=== PATIENT | female | born 1985 | race African-American/Black ===

== ENCOUNTER → 2019-11-18 | Outpatient (CLI) | payer BC ==
[2019-11-18 10:40] LABS: ABSOLUTE EOSINOPHILS # (AUTO) 0.1 10^3/uL (0.0-0.6); ABSOLUTE LYMPHOCYTES (AUTO) 1.1 10^3/uL (0.5-4.7); ABSOLUTE MONOCYTES (AUTO) 0.3 10^3/uL (0.1-1.4); ABSOLUTE NEUT (AUTO) 0.6 10^3/uL (1.7-8.2); BASOPHILS % (AUTO) 1.3 % (0-2); EOSINOPHILS % (AUTO) 4.1 % (0-6); HEMATOCRIT 37.6 % (36.0-47.0); HEMOGLOBIN 12.4 g/dL (12.0-15.5); LYMPHOCYTES % (AUTO) 51.1 % (13-45); MEAN CORPUSCULAR HEMOGLOBIN 30.7 pg (27.0-33.4); MEAN CORPUSCULAR VOLUME 93 fl (80-97); MONOCYTES % (AUTO) 13.9 % (3-13); PLATELET COUNT 179 10^3/uL (150-450); RED BLOOD COUNT 4.04 10^6/uL (3.72-5.28); RED CELL DISTRIBUTION WIDTH 11.5 % (11.5-14.0); SEGMENTED NEUTROPHILS % (AUTO) 29.6 % (42-78); TOTAL CELLS COUNTED % (AUTO) 100 %; WHITE BLOOD COUNT 2.2 10^3/uL (4.0-10.5)
[2019-11-18 10:59] LABS: ALBUMIN 4.5 g/dL (3.5-5.0); ALKALINE PHOSPHATASE 60 U/L (38-126); ANION GAP 6 (5-19); ASPARTATE AMINO TRANSFERASE 18 U/L (14-36); BILIRUBIN,TOTAL 1.1 mg/dL (0.2-1.3); BLOOD UREA NITROGEN 8 mg/dL (7-20); CALCIUM 9.6 mg/dL (8.4-10.2); CARBON DIOXIDE 26 mmol/L (22-30); CHLORIDE 104 mmol/L (98-107); CHOLESTEROL 248.69 mg/dL (0-200); GLUCOSE 90 mg/dL (75-110); POTASSIUM 4.4 mmol/L (3.6-5.0); TOTAL PROTEIN 8.3 g/dL (6.3-8.2); TRIGLYCERIDES 35 mg/dL (<150)
[2019-11-18 11:09] LABS: DIRECT LDL 171 mg/dL (<100)
== END ==
LOC: OD 09:38
PROVIDERS: ATTEND Family Medicine Geriatric Medicine
DX: D64.9 Anemia, unspecified (principal); E55.9 Vitamin D deficiency, unspecified; E78.5 Hyperlipidemia, unspecified; E87.5 Hyperkalemia; Z79.899 Other long term (current) drug therapy
CPT/HCPCS: 36415; 80053; 80061; 82306; 82607; 83735; 84443; 85025; 86480

== ENCOUNTER → 2019-12-19 | Outpatient (CLI) | payer BC ==
--- NOTE | 2019-12-19 11:04 | RADIOLOGY REPORT (SQ) ---
EXAM DESCRIPTION: CT HEAD COMBO IMAGES COMPLETED DATE/TIME: 12/19/2019 9:50 am REASON FOR STUDY: R51 HEADACHE R51 HEADACHE COMPARISON: None. TECHNIQUE: Axial images acquired through the brain without and with intravenous contrast. Images re viewed with bone, brain and subdural windows. Additional sagittal and coronal reconstructions were g enerated. Images stored on PACS. All CT scanners at this facility use dose modulation, iterative reconstruction, and/or weight based d osing when appropriate to reduce radiation dose to as low as reasonably achievable (ALARA). [facility]: Dose Right [facility]: CareDose [facility]: Dose Right [facility]: Teradose 4D [facility]: InPlace CONTRAST TYPE AND DOSE: contrast/concentration: Isovue 350.00 mmol/ml; Total Contrast Delivered: 50. 0 ml; Total Saline Delivered: 55.0 ml RENAL FUNCTION: None required. The patient is less than 50 years old. RADIATION DOSE: CT Rad equipment meets quality standard of care and radiation dose reduction techniq ues were employed. CTDIvol: 48.6 - 48.7 mGy. DLP: 1959 mGy-cm.. LIMITATIONS: None. FINDINGS: VENTRICLES: Normal size and contour. CEREBRUM: No masses. No hemorrhage. No midline shift. Normal sanchez/white matter differentiation. No ev idence for acute infarction. No enhancing lesions. CEREBELLUM: No masses. No hemorrhage. No alteration of density. No evidence for acute infarction. No enhancing lesions. EXTRA-AXIAL SPACES: No fluid collections. No enhancing lesions. ORBITS AND GLOBE: No intra- or extraconal masses. Normal contour of globe without masses. CALVARIUM: No fracture. PARANASAL SINUSES: Mucous membrane thickening in the right frontal sinus. SOFT TISSUES: No mass or hematoma. OTHER: No other significant finding. IMPRESSION: NORMAL BRAIN CT WITHOUT AND WITH CONTRAST. RIGHT FRONTAL SINUS DISEASE. EVIDENCE OF ACUTE STROKE: NO. TECHNICAL DOCUMENTATION: JOB ID: [id number] Quality ID # [id number]: Final reports with documentation of one or more dose reduction techniques (e.g., Au tomated exposure control, adjustment of the mA and/or kV according to patient size, use of iterative reconstruction technique) 2010 [employer] All Rights Reserved Reading location - IP/workstation name: [email or web address]
== END ==
LOC: RAD 09:19
PROVIDERS: ATTEND Family Medicine Geriatric Medicine
DX: R51 Headache (principal)
CPT/HCPCS: 70470

== ENCOUNTER → 2020-01-22 | Outpatient (CLI) | payer BC ==
[2020-01-22 18:13] LABS: ANION GAP 11 (5-19); BLOOD UREA NITROGEN 11 mg/dL (7-20); CALCIUM 9.7 mg/dL (8.4-10.2); CARBON DIOXIDE 24 mmol/L (22-30); CHLORIDE 101 mmol/L (98-107); CHOLESTEROL 230.41 mg/dL (0-200); GLUCOSE 76 mg/dL (75-110); POTASSIUM 4.2 mmol/L (3.6-5.0); TRIGLYCERIDES 35 mg/dL (<150)
[2020-01-22 18:24] LABS: DIRECT LDL 151 mg/dL (<100)
== END ==
LOC: OD 16:17
PROVIDERS: ATTEND Family Medicine Geriatric Medicine
DX: E87.1 Hypo-osmolality and hyponatremia (principal); E78.5 Hyperlipidemia, unspecified; Z79.899 Other long term (current) drug therapy
CPT/HCPCS: 36415; 80048; 80061; 84460

== ENCOUNTER → 2020-03-30 | Outpatient (CLI) | payer BC ==
[2020-03-30 18:17] LABS: ALBUMIN 4.7 g/dL (3.5-5.0); ALKALINE PHOSPHATASE 49 U/L (38-126); ANION GAP 12 (5-19); ASPARTATE AMINO TRANSFERASE 17 U/L (14-36); BILIRUBIN,DIRECT 0.1 mg/dL (0.0-0.4); BILIRUBIN,TOTAL 2.3 mg/dL (0.2-1.3); BLOOD UREA NITROGEN 13 mg/dL (7-20); CALCIUM 9.8 mg/dL (8.4-10.2); CARBON DIOXIDE 26 mmol/L (22-30); CHLORIDE 99 mmol/L (98-107); CHOLESTEROL 200.82 mg/dL (0-200); GLUCOSE 74 mg/dL (75-110); POTASSIUM 3.6 mmol/L (3.6-5.0); TOTAL PROTEIN 8.3 g/dL (6.3-8.2); TRIGLYCERIDES 71 mg/dL (<150)
[2020-03-30 18:29] LABS: DIRECT LDL 131 mg/dL (<100)
== END ==
LOC: OD 15:07
PROVIDERS: ATTEND Family Medicine Geriatric Medicine
DX: E87.1 Hypo-osmolality and hyponatremia (principal); E78.5 Hyperlipidemia, unspecified; Z79.899 Other long term (current) drug therapy
CPT/HCPCS: 36415; 80053; 80061

== ENCOUNTER 2020-04-01 12:45 | Emergency (ER) | payer BC ==
--- NOTE | 2020-04-01 13:16 | ER Document Report ---
ED Medical Screen (RME) - General Chief Complaint: Near Syncope Stated Complaint: SYNCOPE Time Seen by Provider: 04/01/20 13:11 Primary Care Provider: RETA DE MD [Primary Care Provider] - Follow up as needed Mode of Arrival: Medic Information source: Patient Notes: 34-year-old female presented to ED for complaint of dizziness and vaginal bleeding. She states her last menstrual period started on March 18 and she has never had 2 menstrual cycles in the same month before. She states she called Dr. De this morning he told her to come to the emergency room but she did not. She states she went to work today and got sick so then she ended up coming to the emergency room by EMS. She denies use of cigarettes alcohol or illicit drugs. She states she does have a history of high cholesterol and is currently on antibiotics for UTI. She also has a Holter monitor on palpitations. I have greeted and performed a rapid initial assessment of this patient. A comprehensive ED assessment and evaluation of the patient, analysis of test results and completion of medical decision making process will be conducted by an additional ED providers. - Related Data Allergies/Adverse Reactions: amoxicillin Allergy (Verified 04/01/20 13:10) ibuprofen [From Motrin] Allergy (Verified 04/01/20 13:10) Physical Exam - Vital signs Vitals: Temp Pulse Resp BP Pulse Ox 98.3 F 84 14 126/70 H 100 04/01/20 12:49 04/01/20 12:49 04/01/20 12:49 04/01/20 12:49 04/01/20 12:49 Course - Vital Signs Vital signs: Temp Pulse Resp BP Pulse Ox 98.3 F 84 14 126/70 H 100 04/01/20 12:49 04/01/20 12:49 04/01/20 12:49 04/01/20 12:49 04/01/20 12:49 Doctor's Discharge - Discharge Referrals: RETA DE MD [Primary Care Provider] - Follow up as needed
[2020-04-01 14:15] LABS: ABSOLUTE LYMPHOCYTES (AUTO) 1.4 10^3/uL (0.5-4.7); ABSOLUTE MONOCYTES (AUTO) 0.3 10^3/uL (0.1-1.4); ABSOLUTE NEUT (AUTO) 2.3 10^3/uL (1.7-8.2); BASOPHILS % (AUTO) 0.6 % (0-2); EOSINOPHILS % (AUTO) 1.2 % (0-6); HEMATOCRIT 39.6 % (36.0-47.0); HEMOGLOBIN 13.5 g/dL (12.0-15.5); LYMPHOCYTES % (AUTO) 34.7 % (13-45); MEAN CORPUSCULAR HEMOGLOBIN 31.6 pg (27.0-33.4); MEAN CORPUSCULAR VOLUME 93 fl (80-97); MONOCYTES % (AUTO) 6.8 % (3-13); PLATELET COUNT 180 10^3/uL (150-450); RED BLOOD COUNT 4.27 10^6/uL (3.72-5.28); RED CELL DISTRIBUTION WIDTH 11.2 % (11.5-14.0); SEGMENTED NEUTROPHILS % (AUTO) 56.7 % (42-78); TOTAL CELLS COUNTED % (AUTO) 100 %; WHITE BLOOD COUNT 4.1 10^3/uL (4.0-10.5)
--- NOTE | 2020-04-01 14:15 | RADIOLOGY REPORT (SQ) ---
EXAM DESCRIPTION: CHEST 2 VIEWS IMAGES COMPLETED DATE/TIME: 04/01/2020 2:07 pm REASON FOR STUDY: Palpitations dizziness vaginal bleeding COMPARISON: None. EXAM PARAMETERS: NUMBER OF VIEWS: two views TECHNIQUE: Digital Frontal and Lateral radiographic views of the chest acquired. RADIATION DOSE: NA LIMITATIONS: none FINDINGS: LUNGS AND PLEURA: No opacities, masses or pneumothorax. No pleural effusion. MEDIASTINUM AND HILAR STRUCTURES: No masses or contour abnormalities. HEART AND VASCULAR STRUCTURES: Heart normal size. No evidence for failure. BONES: No acute findings. HARDWARE: shelter monitor overlies the anterior -mid left upper chest wall. OTHER: No other significant finding. IMPRESSION: 1. NO ACUTE RADIOGRAPHIC FINDING IN THE CHEST. TECHNICAL DOCUMENTATION: JOB ID: [id number] 2010 [employer]- All Rights Reserved Reading location - IP/workstation name: [email or web address]
[2020-04-01 14:42] LABS: ALBUMIN 4.6 g/dL (3.5-5.0); ALKALINE PHOSPHATASE 59 U/L (38-126); ANION GAP 11 (5-19); ASPARTATE AMINO TRANSFERASE 18 U/L (14-36); BILIRUBIN,TOTAL 1.7 mg/dL (0.2-1.3); BLOOD UREA NITROGEN 10 mg/dL (7-20); CALCIUM 9.6 mg/dL (8.4-10.2); CARBON DIOXIDE 24 mmol/L (22-30); CHLORIDE 103 mmol/L (98-107); CREATINE KINASE 47 U/L (30-135); GLUCOSE 88 mg/dL (75-110); POTASSIUM 3.3 mmol/L (3.6-5.0); TOTAL PROTEIN 8.1 g/dL (6.3-8.2)
--- NOTE | 2020-04-01 18:11 | EKG REPORT ---
SEVERITY:- ABNORMAL ECG - SINUS RHYTHM NONSPECIFIC T ABNORMALITIES, ANTERIOR LEADS : Confirmed by: Fish Zhu MD 01-Apr-2020 18:10:27
[2020-04-01 18:55] LABS: APPEARANCE,URINE CLEAR; BILIRUBIN,URINE NEGATIVE (NEGATIVE); COLOR,URINE STRAW; GLUCOSE, URINE NEGATIVE (NEGATIVE); KETONES,URINE 20 mg/dL (NEGATIVE); LEUKOCYTE ESTERASE,URINE NEGATIVE (NEGATIVE); NITRITE,URINE NEGATIVE (NEGATIVE); PROTEIN,URINE NEGATIVE (NEGATIVE); URINE SPECIFIC GRAVITY 1.006; UROBILINOGEN,URINE NEGATIVE mg/dL (<2.0)
--- NOTE | 2020-04-01 19:21 | ER Document Report ---
ED General - General Chief Complaint: Vaginal Bleeding Stated Complaint: SYNCOPE Time Seen by Provider: 04/01/20 13:11 Primary Care Provider: RETA BUCK MD [Primary Care Provider] - Follow up as needed Mode of Arrival: Medic - HPI Notes: Patient is a 34-year-old family presents to the emergency department for evaluation of abnormal vaginal bleeding and near syncope. Her bleeding started yesterday. Her last menstrual period was approximately 2 weeks ago. She states that she is only needed 1 or 2 pads a day. She denies any significant pain other than some mild cramping. She had a near syncopal episode, but she has been having palpitations that been ongoing. She has a recorder in place, actually has an appoint with to follow-up with cardiology next week. After near syncopal episode and the abnormal vaginal bleeding today, she called her primary care provider who recommended that she come to the emergency department for further evaluation. - Related Data Allergies/Adverse Reactions: amoxicillin Allergy (Verified 04/01/20 13:10) ibuprofen [From Motrin] Allergy (Verified 04/01/20 13:10) Past Medical History - General Information source: Patient - Social History Smoking Status: Never Smoker Chew tobacco use (# tins/day): No Drug Abuse: None Family History: Reviewed & Not Pertinent Patient has homicidal ideation: No - Past Medical History Cardiac Medical History: Reports: Hx Hypercholesterolemia Review of Systems - Review of Systems Constitutional: No symptoms reported EENT: No symptoms reported Cardiovascular: See HPI Respiratory: No symptoms reported Gastrointestinal: No symptoms reported Genitourinary: No symptoms reported Female Genitourinary: See HPI Musculoskeletal: No symptoms reported Skin: No symptoms reported Neurological/Psychological: No symptoms reported -: Yes All other systems reviewed and negative Physical Exam - Vital signs Vitals: Temp Pulse Resp BP Pulse Ox 98.3 F 84 14 126/70 H 100 04/01/20 12:49 04/01/20 12:49 04/01/20 12:49 04/01/20 12:49 04/01/20 12:49 - Notes Notes: Vital signs reviewed, please refer to chart. Head is normocephalic, atraumatic. Pupils equal round, reactive to light. Neck is supple without meningismus. Heart is regular rate and rhythm. Lungs are clear to auscultation bilaterally. Abdomen is soft, nontender, normoactive bowel sounds throughout. Extremities without cyanosis, clubbing. Posterior calves are nontender. Peripheral pulses are equal. Skin is warm and dry. Patient is awake, alert, oriented x3. Cranial nerves II - XII are grossly intact without focal neurological deficits. Strength is plus 5 out of 5 bilateral upper and lower extremities. Sensation is intact. Reflexes symmetrical. Intact [id number], rapid alternating movements, [id number]. Course - Re-evaluation Re-evalutation: 04/01/20 19:55 Patient presents to emergency department for evaluation. She had laboratory investigations and EKG ordered. Laboratory investigations are largely unr emarkable with the exception of some mild hypokalemia, which was replaced here in the department. EKG was found to be abnormal, there are no old studies available comparison. It is likely just secondary to anatomy, she has normal troponin despite multiple T wave inversions. This was discussed with the patient. She already has a follow-up appoint with cardiology next week. She voiced understanding. Otherwise she is to stay hydrated, rest. I am not overly concerned about her vaginal bleeding. It is light and actually seems to be improving for the patient. She is to follow-up with primary care, return to the ED with worsening. - Vital Signs Vital signs: Temp Pulse Resp BP Pulse Ox 98.3 F 84 12 130/88 H 100 04/01/20 12:49 04/01/20 12:49 04/01/20 19:00 04/01/20 19:00 04/01/20 19:00 - Laboratory Result Diagrams: 04/01/20 13:40 04/01/20 13:40 Laboratory results interpreted by me: 04/01/20 04/01/20 04/01/20 13:40 13:40 13:40 RDW 11.2 L Potassium 3.3 L Total Bilirubin 1.7 H Urine Ketones 20 H Urine Blood MODERATE H - Diagnostic Test Radiology reviewed: Reports reviewed Radiology results interpreted by me: 04/01/20 19:58 Chest X-Ray 04/01/20 13:16 IMPRESSION: 1. NO ACUTE RADIOGRAPHIC FINDING IN THE CHEST. - EKG Interpretation by Me Additional EKG results interpreted by me: 04/01/20 19:58 Sinus mechanism with rate of 73 bpm. Normal axis and intervals. Nonspecific ST changes and T wave inversions anteriorly concerning for possible ischemia. No old studies available for comparison. No ST elevation concerning for infarction. The Discharge - Discharge Clinical Impression: Abnormal vaginal bleeding, Near syncope, Abnormal EKG, Hypokalemia Condition: Stable Disposition: HOME, SELF-CARE Instructions: Vaginal Bleeding ([facility]), Hypokalemia ([facility]) Additional Instructions: No clear cause was found for your symptoms today. Rest. Follow-up with primary care this week, cardiology next week as scheduled. Return to the emergency department with worsening or new concerning symptoms of any sort. Referrals: RETA BUCK MD [Primary Care Provider] - Follow up as needed
[2020-04-01] MEDS ORDERED: POTASSIUM CHLORIDE 10 MEQ TABLET.ER PO ONE (19:50)
[2020-04-01 20:24] VITALS: BP 106/75
== END 2020-04-01 20:26 | disposition home or self-care (01) ==
LOC: ER 12:45
DX: N93.8 Other specified abnormal uterine and vaginal bleeding (principal); R55 Syncope and collapse; E87.6 Hypokalemia; R94.31 Abnormal electrocardiogram [ECG] [EKG]; E78.00 Pure hypercholesterolemia, unspecified; Z88.0 Allergy status to penicillin
CPT/HCPCS: 36415; 71046; 80053; 81001; 81025; 82550; 83735; 84443; 84484; 85025; 93005; 93010; 99285

== ENCOUNTER → 2020-04-05 | Outpatient (CLI) | payer BC ==
--- NOTE | 2020-04-06 08:35 | DRAGON STRESS TEST REPORT ---
Exercise stress test Date: April 07, 2020 Referring physician: Fish Zhu MD Performing physician: Fish Zhu MD Indication: Chest pain Clinical history 34-year-old lady who presented with palpitations and chest pain. We decided to proceed with exercise stress test Procedure The patient presented to the stress lab. The patient exercised on the treadmill according to Andrea protocol for a total of 9 minutes and 59 seconds achieving a maximum heart rate of 190 bpm which was 101 % of maximum predicted of 188 bpm. The maximum workload was 13.30 METS. The presenting EKG showed sinus tachycardia at 104 bpm. The initial blood pressure was 138 / 90 mmHg. upon exercise the heart rate laurie to a maximum of 190 beats per minute and the blood pressure laurie to a maximum of 178/78 mmHg. The patient had appropriate increment in heart rate and blood pressure with exercise. The exercise EKG was negative for myocardial ischemia. At peak exercise this conclusion is somewhat limited by excessive movement artifact. The recovery EKG did not reveal any evidence of myocardial ischemia. The patient tolerated the exercise well and did not report chest pain or dyspnea. The test was terminated on account of patient fatigue and patient having achieved target heart rate. The patient's EKG and vital signs were monitored throughout the procedure. After a period of rest, stress images were obtained according to standard protocol. Conclusion The exercise EKG is negative for myocardial ischemia. Excellent exercise tolerance. Normal heart rate and blood pressure response to exercise. The patient will be given an appointment to discuss these test results. GENNY
== END ==
LOC: SP 09:05
PROVIDERS: ATTEND Internal Medicine
DX: R00.2 Palpitations (principal); I25.9 Chronic ischemic heart disease, unspecified; R42 Dizziness and giddiness; R55 Syncope and collapse
CPT/HCPCS: 93017

== ENCOUNTER → 2020-04-08 | Outpatient (CLI) | payer BC | LOC: SP 15:11 | PROVIDERS: ATTEND Internal Medicine | DX: R00.2 Palpitations (principal); I25.9 Chronic ischemic heart disease, unspecified; R07.9 Chest pain, unspecified ==

== ENCOUNTER → 2020-06-04 | Outpatient (CLI) | payer BC ==
[2020-06-04 11:33] LABS: ALBUMIN 4.4 g/dL (3.5-5.0); ALKALINE PHOSPHATASE 48 U/L (38-126); ANION GAP 6 (5-19); ASPARTATE AMINO TRANSFERASE 22 U/L (14-36); BILIRUBIN,DIRECT 0.1 mg/dL (0.0-0.4); BILIRUBIN,TOTAL 1.8 mg/dL (0.2-1.3); BLOOD UREA NITROGEN 7 mg/dL (7-20); CALCIUM 9.6 mg/dL (8.4-10.2); CARBON DIOXIDE 27 mmol/L (22-30); CHLORIDE 104 mmol/L (98-107); CHOLESTEROL 226.06 mg/dL (0-200); GLUCOSE 86 mg/dL (75-110); POTASSIUM 3.8 mmol/L (3.6-5.0); TOTAL PROTEIN 7.9 g/dL (6.3-8.2); TRIGLYCERIDES 45 mg/dL (<150)
[2020-06-04 11:43] LABS: DIRECT LDL 142 mg/dL (<100)
== END ==
LOC: OD 10:19
PROVIDERS: ATTEND Family Medicine Geriatric Medicine
DX: E78.5 Hyperlipidemia, unspecified (principal); R94.5 Abnormal results of liver function studies; Z79.899 Other long term (current) drug therapy
CPT/HCPCS: 36415; 80048; 80061; 80076

== ENCOUNTER → 2020-06-11 | Outpatient (CLI) | payer BC ==
--- NOTE | 2020-04-08 17:14 | XCELERA REPORT ---
[address] [address] Transthoracic Echocardiogram Report Name: MEME BEEBE Age: 34 yrs Gender: Female : 1985 Patient Status: Preadmit Patient Location: RAD Study Date: 04/08/2020 03:13 PM History: Chest pain Height: 68 in Weight: 140 lb BSA: 1.8 m2 Procedure: A complete two-dimensional transthoracic echocardiogram was performed (2D, M-mode, spectral and color flow Doppler). The study was technically adequate with some images being suboptimal in quality. Reason For Study: CHRONIC ISCHEMIC HEART Previous Evaluation: No previous studies were available. History: Chest pain. Ordering Physician: RINA ORTIZ Performed By: Judith Michelle Interpretation Summary Left ventricular systolic function is normal. The Ejection Fraction estimate is 55-60% The right ventricle is normal in size and function. There is a trace amount of mitral regurgitation There is no aortic valve stenosis There is a trace amount of tricuspid regurgitation Normal PA Pressure There is no pericardial effusion. MMode/2D Measurements & Calculations RVDd: 1.9 cm LVIDd: 4.2 cm FS: 31.5 % Ao root diam: 2.2 cm IVSd: 0.70 cm LVIDs: 2.9 cm EDV(Teich): 77.7 ml Ao root area: 3.8 cm2 LVPWd: 0.79 cm ESV(Teich): 31.3 ml EF(Teich): 59.7 % Doppler Measurements & Calculations MV E max zia: MV dec slope: Ao V2 max: LV V1 max P.5 cm/sec 550.7 cm/sec2 108.5 cm/sec 3.6 mmHg MV A max zia: MV dec time: 0.16 secAo max PG: LV V1 mean P.2 cm/sec 4.7 mmHg 2.2 mmHg MV E/A: 1.5 LV V1 max: 94.9 cm/sec LV V1 mean: 70.7 cm/sec LV V1 VTI: 18.0 cm PA V2 max: TR max zia: 73.8 cm/sec 197.7 cm/sec PA max P.2 mmHg TR max P.6 mmHg Left Ventricle The left ventricle is normal in size. There is normal left ventricular wall thickness. Left ventricular systolic function is normal. The Ejection Fraction estimate is 55-60%. Doppler measurements suggest normal left ventricular diastolic function. No regional wall motion abnormalities noted. Right Ventricle The right ventricle is normal in size and function. Atria The right atrium is normal. The left atrial size is normal. Mitral Valve The mitral valve is grossly normal. There is no mitral valve stenosis. There is a trace amount of mitral regurgitation. Aortic Valve The aortic valve opens well. The aortic valve is not well visualized secondary to technical limitations. There is no aortic valve stenosis. No aortic regurgitation is present. Tricuspid Valve The tricuspid valve is normal in structure and function. There is no tricuspid stenosis. There is a trace amount of tricuspid regurgitation. Normal PA Pressure. Great Vessels The aortic root is normal size. The inferior vena cava was not well visualized. Effusions There is no pericardial effusion. : RINA ORTIZ Anil
--- NOTE | 2020-06-13 08:31 | RADIOLOGY REPORT (SQ) ---
EXAM DESCRIPTION: CT SINUSES FOR ENT IMAGES COMPLETED DATE/TIME: 06/11/2020 4:15 pm REASON FOR STUDY: CYST OF NOSE J34.1 CYST AND MUCOCELE OF NOSE AND NASAL SINUS COMPARISON: None. TECHNIQUE: Noncontrast scanning through the paranasal sinuses using bone algorithm. Reconstructed MPR images reviewed. All images stored on PACS. All CT scanners at this facility use dose modulation, iterative reconstruction, and/or weight based d osing when appropriate to reduce radiation dose to as low as reasonably achievable (ALARA). [facility]: Dose Right [facility]: CareDose [facility]: Dose Right [facility]: Teradose 4D [facility]: PharmAbcine RADIATION DOSE: 47 mGy LIMITATIONS: None. FINDINGS: Right sinuses and drainage pathways: Post-surgical changes: None. Frontal sinus: There is a mucocele within a right frontal type 2 cell, best shown on coronal image 6 0, axial image 62 and sagittal image 26. Thin rim of surrounding eggshell type calcification was mil d pressure erosion of surrounding bony septa. Remainder of the right frontal sinus is otherwise unre markable. Frontoethmoidal Recess: Normal. Anterior Ethmoid Sinuses: Normal. Posterior Ethmoid Sinuses: Normal. Sphenoid Sinus: Normal. Sphenoethmoidal Recess: Normal. Maxillary Sinus: Normal. Ostiomeatal Complex: Normal. Left Sinuses and Drainage Pathways: Post-Surgical Changes: None. Frontal Sinus: Normal. Frontoethmoidal Recess: Normal. Anterior Ethmoid Sinuses: Normal. Posterior Ethmoid Sinuses: Normal. Sphenoid Sinus: Normal. Sphenoethmoidal Recess: Normal. Maxillary Sinus: Normal. Ostiomeatal Complex: Normal. Right Olfactory Fossa: No polyps. Left Olfactory Fossa: No polyps. Middle Turbinate Saida Bullosa: No. Paradoxical Middle Turbinate: No. Atelectatic Uncinated Process: No. Frontal Heriberto Cell Type I: No. Frontal Heriberto Cell Type II: On the right with mucocele Interfrontal Sinus Septal Cell: None. Supra-Orbital Ethmoid: None. Frontal Bullar Cell: None. Suprabullar Bullar Cell: None. Sphenoethmoidal ([place]) Cell: None. Pneumatization of the Anterior Clinoid Processes: No Hypoplastic Maxillary Sinus: None. Osteoneogenesis: None. Bone Dehiscence:None. Nasal Cavity: Normal. Nasal Septum: Midline Anatomic Variants: Right Vidian Canal: Normal. Left Vidian Canal: Normal. IMPRESSION: Right frontal sinus small mucocele TECHNICAL DOCUMENTATION: JOB ID: [id number] Quality ID # [id number]: Final reports with documentation of one or more dose reduction techniques (e.g., Au tomated exposure control, adjustment of the mA and/or kV according to patient size, use of iterative reconstruction technique) 2010 [employer]- All Rights Reserved Reading location - IP/workstation name: [email or web address]
== END ==
LOC: RAD 16:03
PROVIDERS: ATTEND Otolaryngology
DX: J34.1 Cyst and mucocele of nose and nasal sinus (principal); I25.9 Chronic ischemic heart disease, unspecified
CPT/HCPCS: 70486; 93306